=== PATIENT | male | born 1945 | race African-American/Black ===

== ENCOUNTER → 2017-01-09 | Outpatient (CLI) | payer MEDICARE, BC ==
[2015-01-27 14:20] VITALS: BP 149/96
[~2017-01-09] MED LIST: ASPI-482 PO; INSU100I11 SQ; INSU100V13 SQ; LISI-334 PO; SITA100T PO
[2017-01-09 09:33] LABS: BASO % 1 % (0-3); EOS % 0 % (0-3); HEMATOCRIT 38.2 % (39.0-53.0); HEMOGLOBIN 13.4 g/dL (13.0-17.5); LYMPH # 2.5 x10^3/uL (1.0-4.8); LYMPH % 46 % (24-48); MEAN CORPUSCULAR HEMOGLOBIN 31 pg (25-35); MEAN CORPUSCULAR HGB CONC 35 g/dL (31-37); MEAN CORPUSCULAR VOLUME 87 fL (79-100); MONO % 10 % (0-9); NEUT % 43 % (31-73); PLATELET COUNT 197 x10^3/uL (140-400); RED BLOOD COUNT 4.39 x10^6/uL (4.30-5.70); RED CELL DISTRIBUTION WIDTH 13.9 % (11.5-14.5); WHITE BLOOD COUNT 5.4 x10^3/uL (4.0-11.0)
[2017-01-09 09:39] LABS: ALBUMIN 3.7 g/dL (3.4-5.0); CALCIUM 8.9 mg/dL (8.5-10.1); GFR 89.4; POTASSIUM 4.1 mmol/L (3.5-5.1)
[2017-01-09 09:40] LABS: BILIRUBIN,URINE NEGATIVE (NEG); GLUCOSE,URINE 250 mg/dL (NEG); NITRITE,URINE NEGATIVE (NEG); PROTEIN,URINE NEGATIVE (NEG-TRACE); UROBILINOGEN,URINE 0.2 mg/dL (0.2 mg/dL)
[2017-01-09 09:44] LABS: PROTHROMBIN TIME PATIENT 12.5 SEC (11.7-14.0)
[2017-01-09 09:51] LABS: BACTERIA,URINE 0 /HPF (0-FEW); RBC,URINE 0 /HPF (0-2); SQUAMOUS EPITHELIAL CELL,UR OCC /LPF; WBC,URINE 0 /HPF (0-4)
--- NOTE | 2017-01-09 13:37 | RAD ---
Indication anticipated hip replacement. PA and lateral views of the chest were obtained and are compared to an examination almost 2 years earlier. There are occasional calcified granulomas similar to the previous exam. The heart and pulmonary vessels are within normal limits. There is no focal infiltrate. Significant pleural fluid is not seen. There is no pneumothorax. There has not been a significant change when compared to the previous exam. IMPRESSION: No acute finding. No significant change
--- NOTE | 2017-01-09 14:06 | EKG ---
[facility] [address] [place] [address] Test Date: 2017-01-09 Test Time: 12:32:59 Pat Name: JI MENDOZA Department: Room: Gender: M Manager Body: : 1945 Requested By: DAVIDA ZAMBRANO Order Number: [id number] Reading MD: Ulisses Ernst Measurements Intervals [place] Rate: 62 P: 69 OK: 192 QRS: 73 QRSD: 80 T: 63 QT: 354 QTc: 361 Interpretive Statements SINUS RHYTHM QRS(T) CONTOUR ABNORMALITY CONSIDER ANTEROSEPTAL MYOCARDIAL DAMAGE ST & T ABNORMALITY, CONSIDER RECENT INFERIOR MYOCARDIAL OR PERICARDIAL DAMAGE ABNORMAL ECG RI6.01 Compared to ECG 01/27/2015 10:53:51 T-wave abnormality now present Electronically Signed On 01-11-2017 11:13:55 CDT by Ulisses Ernst
== END | disposition home or self-care (01) ==
LOC: SURGPAT 10:17
PROVIDERS: ATTEND Orthopaedic Surgery Sports Medicine
DX: Z01.818 Encounter for other preprocedural examination (principal); I10 Essential (primary) hypertension; M16.12 Unilateral primary osteoarthritis, left hip
CPT/HCPCS: 36415; 71020; 80048; 81001; 82040; 83036; 85027; 85610; 85730; 87641; 93005

== ENCOUNTER 2018-03-08 18:35 | Emergency (ER) | payer BC, MEDICARE ==
[2017-01-26 11:15] VITALS: BP 154/85
== END 2018-03-09 00:01 | disposition left against medical advice (07) ==
LOC: ER 18:35
DX: R25.2 Cramp and spasm (principal); Z53.21 Procedure and treatment not carried out due to patient leaving prior to being seen by health care provider

== ENCOUNTER → 2018-05-16 | Outpatient (CLI) | payer MEDICARE ==
[2017-01-26 11:15] VITALS: BP 154/85
== END | disposition home or self-care (01) ==
LOC: LAB 10:29
PROVIDERS: ATTEND Urology
DX: R30.0 Dysuria (principal)
CPT/HCPCS: 87086